=== PATIENT | male | born 1995 | race Caucasian/White ===

== ENCOUNTER 2016-12-08 14:49 | Emergency (ER) | payer BC ==
[~2016-12-08] VITALS: Ht 180.3 cm; Wt 91.2 kg
[2016-12-08 14:53] VITALS: TEMP 36.9; Ht 180.3 cm; Wt 91.2 kg
[2016-12-08] MEDS ORDERED: FAMOTIDINE 20MG/102 ML D5W IV STA (15:04)
[2016-12-08] MEDS ORDERED: METHYLPREDNISOLONE 125 MG VIAL IV STA (15:04)
[2016-12-08] MEDS ORDERED: EpINEphrine INJ 1MG/ML AMP 1 MG/ML AMP IM STA (15:04)
[2016-12-08] MEDS ORDERED: DiphenhydrAMINE HCL 50 MG/ML VIAL IV STA (15:04)
[2016-12-08] MEDS ORDERED: CLR10 PO (15:29)
[2016-12-08] MEDS ORDERED: IBUP-103 PO (15:30)
--- NOTE | 2016-12-08 15:33 | EMERGENCY ROOM VISIT NOTE ---
History Report prepared by Juan Antonioibsamantha: Tyler North Under the Supervision of: Dr. Yobany Cardenas M.D. First contact with patient: 15:01 Chief Complaint: ALLERGIC REACTION Stated Complaint: TROUBLE BREATHING, SWOLLOWING, SWELLING TO FACE Nursing Triage Summary: Pt states he woke up from a nap around 2:30, woke with raspy voice, trouble breathing, lips/mouth and right eye swollen and rash. Advil taken earlier today. Claritin taken when he woke up. History of Present Illness The patient is a 21 year old male who presents to the Emergency Room with complaints of a worsening allergic reaction beginning 30 minutes ago. His symptoms involve facial swelling. He states that he woke up from a nap with his symptoms. The patient notes that he took Claritin and Advil this morning for a rash on his back. He did not experience any symptoms at this time. The patient states that it feels like it is starting to get more difficult to breath. He notes that he fell and cut his chin last night. He has no history of allergic reactions. Source of History: patient Onset: 30 minutes ago Position: head (face) Quality: other (allergic reaction) Timing: worsening Note: The patient notes that it is beginning to get more difficult to breath. Review of Systems See HPI for pertinent positives & negatives. A total of 10 systems reviewed and were otherwise negative. Past Medical & Surgical Medical Problems: (1) Asthma (2) No Known Active Medical Problems Family History No pertinent family history stated. Social History Smoking Status: Never Smoker Housing Status: lives with roommate Occupation Status: [employer] Current/Historical Medications Scheduled Epinephrine (Epipen 2-Cameron), 1 APPL IM DIRECTED Loratadine (Claritin), 10 MG PO DAILY Prednisone (Prednisone), 2 TAB PO DAILY Scheduled PRN Ibuprofen Tab (Advil), 200 MG PO Q6H PRN for Pain Allergies Coded Allergies: No Known Allergies (Unverified , 12/08/16) Physical Exam Vital Signs Date Time Temp Pulse Resp B/P Pulse Ox O2 Delivery O2 Flow Rate FiO2 12/08/16 19:05 82 17 139/90 98 12/08/16 18:35 82 17 139/90 98 Room Air 12/08/16 17:08 80 17 135/66 98 Room Air 12/08/16 15:34 82 12/08/16 14:55 99 Room Air 12/08/16 14:53 36.9 98 17 143/92 99 Room Air Physical Exam GENERAL: Patient is in no acute distress. HEENT: Lip edema and facial swelling. Edema around both eyes. Subtle uvular edema. No facial cellulitis. Mucous membranes are moist. NECK: No stridor, no adenopathy, no meningismus, trachea is midline. LUNGS: Clear to auscultation bilaterally, no wheeze, no rhonchi, breath sounds equal. HEART: Without murmurs gallops or rubs, regular rate and rhythm. ABDOMEN: Soft, nontender, bowel sounds positive, no hernias, no peritonitis. EXTREMITIES: No cyanosis or edema, full range of motion of all the joints without pain or difficulty, no signs for acute trauma. NEUROLOGIC: Oriented x 3, no acute motor or sensory deficits, no focal weakness. SKIN: No jaundice, no diaphoresis. Slightly raised erythematous lesions to the left neck. No cellulitis. Medical Decision & Procedures Medications Administered Medications (Trade) Dose Ordered Sig/Tamiko Route Start Time Stop Time Status Last Admin Dose Admin Epinephrine HCl (EpINEphrine INJ 1MG/ML AMP/VIAL) 0.3 mg NOW STAT IM 12/08/16 15:04 12/08/16 15:06 DC 12/08/16 15:11 0.3 MG Methylprednisolone Sodium Succinate (Solu-Medrol IV) 125 mg NOW STAT IV 12/08/16 15:04 12/08/16 15:06 DC 12/08/16 15:11 125 MG Diphenhydramine HCl (Benadryl Inj) 50 mg NOW STAT IV 12/08/16 15:04 12/08/16 15:06 DC 12/08/16 15:11 50 MG Famotidine (Pepcid 20mg/100 ml) 20 mg ONE STAT IV 12/08/16 15:04 12/08/16 15:06 DC 12/08/16 15:16 20 MG Epinephrine (Epipen) 0.3 mg NOW STAT IM 12/08/16 18:48 12/08/16 18:50 DC 12/08/16 19:00 0.3 MG ED Course 1502: The patient was evaluated in room C8. A complete history and physical exam was performed. 1504: Ordered Pepcid 20 mg/100 mL 20 mg IV, Benadryl Inj 50 mg IV, Solu-Medrol 125 mg IV, Epinephrine HCl 0.3 mg IM. 1721: I reassessed the patient. He feels much better. 1846: Reevaluated the patient. He feels better and would like to go home. Discussed results and discharge instructions: he verbalized understanding and agreement. The patient is ready for discharge. Medical Decision The patient is a 21 year old male who presents to the ED with complaints of an allergic reaction. Differential diagnoses considered include anaphylaxis, medication/food/environmental allergy, uvular edema, wheezing, as well as other etiologies were considered. Patient presents with what seems like an acute allergic reaction. He had taken Motrin earlier before the reaction occurred. He has no known allergies. The patient received IM epinephrine, IV Solu-Medrol, IV Benadryl and IV Pepcid. He was watched here for 4 hours. His symptoms have improved, he has done well. The patient is being discharged with an EpiPen, he'll be on prednisone and Benadryl for a few days. He will sleep with his head elevated. The patient is being referred to [facility] for possible allergy testing. He will avoid Motrin and Motrin like products until told otherwise. He can return if his symptoms worsen. Impression Primary Impression: Acute allergic reaction Scribe Attestation The scribe's documentation has been prepared under my direction and personally reviewed by me in its entirety. I confirm that the note above accurately reflects all work, treatment, procedures, and medical decision making performed by me. Departure Information Dispostion Home / Self-Care Prescriptions Epinephrine (EPIPEN 2-CAMERON) 0.3 Mg Inj 1 APPL IM DIRECTED, #1 APPL Prov: Yobany Cardenas M.D. 12/08/16 Prednisone (Prednisone) 20 Mg Tab 2 TAB PO DAILY for 4 Days, #8 TAB Prov: Yobany Cardenas M.D. 12/08/16 Forms HOME CARE DOCUMENTATION FORM, IMPORTANT VISIT INFORMATION Patient Instructions My [facility] Additional Instructions sleep with the head elevated benadryl 2 tab 3x per day for 4 more days prednisone daily for 4 more days no more motrin, advil, aspirin or aleve for now--use tylenol for pain follow with [facility] for recheck and possible allergy testing referral keep epipen with you at all times and use if needed return if worsening
[2016-12-08] MEDS ORDERED: PRED20TA PO (18:17)
[2016-12-08] MEDS ORDERED: EPP3/2 IM (18:17)
[2016-12-08] MEDS ORDERED: EPINEPHRINE ADULT AUTO-INJECT 0.3 MG SYR IM STA (18:48)
[2016-12-08 19:05] VITALS: BP 139/90; PULSE 82; O2SAT 98
== END 2016-12-08 19:05 | disposition home or self-care (01) ==
LOC: C.EDB 14:52 → C.EDC 19:05
DX: T78.40XA Allergy, unspecified, initial encounter (principal); X58.XXXA Exposure to other specified factors, initial encounter; J45.909 Unspecified asthma, uncomplicated